=== PATIENT | male | born 1990 | race Caucasian/White ===

== ENCOUNTER 2019-01-19 07:38 | Day surgery (SDC) | payer MEDICAID, SELFPAY ==
[2019-01-19] VITALS (7 sets, daily range): BP systolic 109–134; BP diastolic 75–88; PULSE 74–88; RESP 11–18; TEMP 36.3–36.6; O2SAT 98–100
--- NOTE | 2019-01-19 06:33 | ROE_ITS ---
Date of service: 01/19/19 Time of Service: 10:33 Operative Note DATE OF PROCEDURE: 01/19/19 PRE-OP DIAGNOSIS: Biliary dyskinesia POST-OP DIAGNOSIS: same PROCEDURE: Laparoscopic Cholecystectomy SURGEON: Noemi Huff ASSISTING SURGEON: Danitza Avila MECHANICAL ENGINEERING OFFICER: Chata Reveles ANESTHESIA: GETA (ASA 2/ ) and regional ESTIMATED BLOOD LOSS: 25 PATHOLOGY: other (Gallbladder) COMPLICATIONS: None Patient was transported to: PACU Patient's condition: stable Indications: Mr. Dorman is a pleasant 28 year old seen in the office for Billiary Dyskinesia. Risks, benefits, complications were reviewed with the patient in the office. Complications include but are not limited to bleeding, infection, injury to stomach, small bowel and large bowel, injury to the p ancreas, injury to the common bile duct necessitating drainage and referral to tertiary center for repair, bile leak, adverse reactions to the medications, complications of intubation including a sore throat or injury to the uvula, RI, stroke and even . Questions were entertained and answered to her satisfaction and she wished to proceed. No guarantees were given or implied. Findings: Normal appearing Gallbladder. No stones noted Procedure Description: After informed consent was obtained the patient was taken to the PACU and anesthesia performed a erector spine block for postoperative comfort. Once the block was in place the patient was brought to the operating room, placed in a supine position and monitors were applied. SCDs were applied to her lower extremities and he was placed under general anesthesia and intubated without difficulty. His abdomen was then prepped and draped in a sterile fashion using ChloraPrep. At this point a timeout was done and the patient's name, date of , procedure type, allergies to medications, metal in her body, antibiotic and DVT prophylaxis, and fire risk was assessed. At this point half percent Marcaine was injected just above the umbilicus into the dermis and subcutaneous tissue. A 5 mm incision was made with an 11 blade. The skin next to the incision was grasped with penetrating towel clamps and while pulling up on the skin a 5 mm port was placed under direct visualization. It was difficult to get the port through the fascia so I made the incision a little bit bigger and grasped the fascia with kochers. The fascia was the cut with Scisors and the port was then placed easily into the abdomen. The abdomen was insuflated and then 3 more ports were placed. A 12 mm port was placed in the subxiphoid area and two 5 mm ports were placed in the right upper quadrant. The liver was inspected and was noted to be normal. The patient's bed was then turned to the left and the head was brought up. The gallbladder was grasped at the body and pushed towards the right shoulder, this allowed me to visualize the neck of the gallbladder. The duodenum was noted to be attached to the body of the Gallbladder. The band of scar tissue was dissected away from the Gallbladder and it was cut with laparoscopic scissors. The duodenum was then swept down and way from the operating field. The neck of the Gallbladder was grasped and pulled towards the right flank and down allowing me to visualize the lymph node. Using a [place] dissector with cautery the lymph node was gently dissected away. The cystic duct was identified it was normal in size. The duct was dissected 360 degrees using the [place] dissector in order for me to visualize its entrance into the gallbladder. Liver was noted behind it. There were no other structures right behind. Critical view was achieved. 3 clips were placed one proximal and 2 distal and the cystic duct was cut. The cystic artery was then identified and dissected 360 degrees. It was located just medial to the cystic duct. It was visualized going into the gallbladder. Once dissected 3 more clips were placed one proximal and 2 distal and the artery was cut. Using the hook dissector the gallbladder was then dissected away from the liver bed and placed into an Endo Catch bag and pulled through the 12 mm port site. The 12 mm port was placed back into the abdomen under direct visualization. The liver bed was inspected no bleeding was noted. The abdomen was then irrigated 800 cc of normal saline until the effluent was clear. Once all the fluid was suctioned out, the rest of the local anesthetic mixture was injected above the liver to help with postoperative right shoulder pain. The 12 mm and the 2 right upper quadrant ports were removed under direct visualization and no bleeding was noted from the fascia. The abdomen was deflated completely and lastly the umbilical port was removed. 10 cc of exparel was then injected into the fascia of the subxiphoid incision as well as the umbilical incision. The skin was cleaned and the incisions were closed with 4-0 Vicryl. The skin was dried and skin affix was applied over the closed incisions. Needle and sponge counts were correct at the end of the case. At this point the patient was woken up, extubated and taken back to recovery in stable condition. There were no immediate complications and the patient tolerated the procedure well.
--- NOTE | 2019-01-19 06:58 | W.PM.DSUDISC ---
Discharge Plan Disposition Patient Disposition: HOME Condition: Good Discharge Details Reason For Visit: Biliary Dyskinesia Attending Provider: Noemi Huff Primary Care Provider: Karen Nails Home Meds and New Rx's Prescriptions: New acetaminophen [Tylenol] 325 mg Tablet 650 mg PO Q6H PRN (Reason: fever or pain) Qty: 60 RF: 0 ibuprofen [IBU] 600 mg Tablet 600 mg PO Q6H PRN PRN (Reason: Pain) Qty: 30 RF: 0 oxycodone 5 mg Tablet 5 mg PO Q6H PRN (Reason: Pain) Qty: 14 RF: 0 Continued loratadine [Allergy Relief (loratadine)] 10 mg tablet 10 mg PO DAILY RF: 0 divalproex [Depakote] 500 mg tablet,delayed release (DR/EC) 1,500 mg PO DAILY RF: 0 olanzapine [Zyprexa] 15 mg tablet 15 mg PO DAILY RF: 0 bupropion HCl 150 mg tablet extended release 24 hr 150 mg PO QAM RF: 0 Discharge Instructions Instructions: Laparoscopic Cholecystectomy (DC) Additional Instructions: Activity at Home after surgery: 1. Make sure you walk outside at least 4 times per day 2. You should be able to climb a flight of stairs 3. No driving while in pain or taking pain medications 4. No strenuous activity or heavy lifting for 2 weeks (laparoscopic surgery) Diet, Nutrition, & wound healin. Avoid alcohol until after you are recovered from your surgery 2. Make sure to eat plenty of lean protein (meat, fish, eggs, cottage cheese, beans) 3. Eat a variety of fruits and vegetables. Eat plenty of high fiber foods to avoid constipation. 4. Drink plenty of liquids to stay hydrated and avoid constipation Pain Medications: 1. Alternate Tylenol 650 mg 2. Ibuprofen 600 mg every 3 hours 3. If a narcotic has been prescribed take as directed only for breakthrough pain For Constipation: 1. Take Milk of Magnesia or MiraLax as needed for constipation Other: 1. You may shower daily. Do not scrub the incisions 2. Do not soak the incisions for 1 week 3. You may alternate ice and heat as needed for pain and swelling Wound Care: 1. Keep the incisions clean and dry Please call our office if you develop: 1. Fevers >101.5 2. Nausea or Vomiting 3. Worsening pain 4. Redness and thick discharge from the wounds If after hours please call the Hospital at and ask to speak to the on-call surgeon Referrals: Noemi Huff MD [ [facility] STAFF PHYSICIAN] - 02/04/19 9:45 am Activity:: No lifting >20 lb x 2 weeks Diet:: low fat Discharge Orders Discharge Orders: Discharge Order (Routine); Ordered 01/19/19 Ordered By: Noemi Huff DS: Diagnosis Discharge Diagnosis (1) History of laparoscopic cholecystectomy: Status: Acute (2) Biliary dyskinesia: Status: Acute
--- NOTE | 2019-01-19 07:01 | PDOC.DSDIS_ITS ---
Discharge Plan Disposition Patient Disposition: HOME Condition: Good Discharge Details Reason For Visit: Biliary Dyskinesia Attending Provider: Noemi Huff Primary Care Provider: Karen Nails Home Meds and New Rx's Prescriptions: New acetaminophen [Tylenol] 325 mg Tablet 650 mg PO Q6H PRN (Reason: fever or pain) Qty: 60 RF: 0 ibuprofen [IBU] 600 mg Tablet 600 mg PO Q6H PRN PRN (Reason: Pain) Qty: 30 RF: 0 oxycodone 5 mg Tablet 5 mg PO Q6H PRN (Reason: Pain) Qty: 14 RF: 0 Continued loratadine [Allergy Relief (loratadine)] 10 mg tablet 10 mg PO DAILY RF: 0 divalproex [Depakote] 500 mg tablet,delayed release (DR/EC) 1,500 mg PO DAILY RF: 0 olanzapine [Zyprexa] 15 mg tablet 15 mg PO DAILY RF: 0 bupropion HCl 150 mg tablet extended release 24 hr 150 mg PO QAM RF: 0 Discharge Instructions Instructions: Laparoscopic Cholecystectomy (DC) Additional Instructions: Activity at Home after surgery: 1. Make sure you walk outside at least 4 times per day 2. You should be able to climb a flight of stairs 3. No driving while in pain or taking pain medications 4. No strenuous activity or heavy lifting for 2 weeks (laparoscopic surgery) Diet, Nutrition, & wound healin. Avoid alcohol until after you are recovered from your surgery 2. Make sure to eat plenty of lean protein (meat, fish, eggs, cottage cheese, beans) 3. Eat a variety of fruits and vegetables. Eat plenty of high fiber foods to avoid constipation. 4. Drink plenty of liquids to stay hydrated and avoid constipation Pain Medications: 1. Alternate Tylenol 650 mg 2. Ibuprofen 600 mg every 3 hours 3. If a narcotic has been prescribed take as directed only for break through pain For Constipation: 1. Take Milk of Magnesia or MiraLax as needed for constipation Other: 1. You may shower daily. Do not scrub the incisions 2. Do not soak the incisions for 1 week 3. You may alternate ice and heat as needed for pain and swelling Wound Care: 1. Keep the incisions clean and dry Please call our office if you develop: 1. Fevers >101.5 2. Nausea or Vomiting 3. Worsening pain 4. Redness and thick discharge from the wounds If after hours please call the Hospital at and ask to speak to the on-call surgeon Referrals: Noemi Huff MD [ [facility] STAFF PHYSICIAN] - 02/04/19 9:45 am Activity:: No lifting >20 lb x 2 weeks Diet:: low fat Discharge Orders Discharge Orders: Discharge Order (Routine); Ordered 01/19/19 Ordered By: Noemi Huff DS: Diagnosis Discharge Diagnosis (1) History of laparoscopic cholecystectomy: Status: Acute (2) Biliary dyskinesia: Status: Acute
[2019-01-19] MEDS: Lactated Ringers 1,000 ML 80 ML IV (08:20)
[2019-01-19] MEDS: Bupivacaine LIPOSOME/PF 133 MG/10 ML VIAL IJ ×2 (09:40→11:12)
[2019-01-19] MEDS: PIPERACILLIN/TAZO 3.375 GM in Normal Saline 50 ML IVPB (09:40)
[2019-01-19] MEDS: Bupivacaine 0.5% Pres-Free 30 ML VIAL (09:40)
--- NOTE | 2019-01-19 11:00 | GB_PTH ---
PATIENT: Robbin Dorman LOC: [facility] U#:[id number] AGE/SX: 28/M ROOM: RE01/19/[address]: Noemi Huff MD : 1990 BED: DIS: 01/19/2019 SPEC #: [id number] RECD: 01/19/19 12:15 STATUS: ZAHRA REQ #: [id number] FIDELINA: 01/19/19 11:[address]: Noemi Huff DEPT: Surgical Specimen RECD BY: Marguerite Dietrich ENTERED: 01/19/19 12:16 SP TYPE: GB OTHR DR: Karen Nails Tissues: 1 - GALLBLADDER Procedures: GROSS AND MICRO LEVEL 3 Comments: [id number]
[2019-01-19] MEDS: Lidocaine 1% Multi-Dose 50 ML VIAL (11:11)
[2019-01-19] MEDS: Ibuprofen 600 MG TAB PO (13:36)
== END 2019-01-19 14:08 | disposition home or self-care (01) ==
PROVIDERS: PCP Internal Medicine; Visit Provider Surgery
PROC: 0FT44ZZ Resection of Gallbladder, Percutaneous Endoscopic Approach (ICD-10-PCS; CPT 47562; principal; 2019-01-19 09:00)
DX: K81.1 Chronic cholecystitis (principal); K82.8 Other specified diseases of gallbladder
CPT/HCPCS: 47562; 76942; 88304; J1100; J2543; J3010

== ENCOUNTER 2021-05-17 15:07 | Emergency (ER) | payer MEDICAID, SELFPAY ==
[2021-05-17 15:15] VITALS: BP 133/84; PULSE 120; TEMP 37.1; O2SAT 97
--- NOTE | 2021-05-17 15:15 | DI.RAD_ITS ---
Exam(s) XR KNEE RT 3V AP,LAT,PHILIP EXAM: XR KNEE RT 3V AP,LAT,PHILIP CLINICAL HISTORY: pain, injury last night. TECHNIQUE: 2D digital imaging was performed of the right knee. Three views obtained. AP, lateral an d AP tunnel views were obtained. COMPARISON: No exams were available for comparison FINDINGS: BONES: No acute fracture is present. No bony destructive lesion is seen. JOINTS: The knee is normally aligned. No joint effusion is seen. SOFT TISSUE: Normal. IMPRESSION: Unremarkable radiographs of the right knee. DATA REPOSITORY: RADIATION DOSE DELIVERED:
--- NOTE | 2021-05-17 15:27 | ED.GENADUL_ITS ---
Discharge Plan Disposition Patient Disposition: HOME Condition: Stable Discharge Details Clinical Impression: Injury of knee, right Primary Care Provider: Karen Nails ED Provider: Mamadou Treadwell Home Meds and New Rx's Prescriptions: Continued loratadine [Allergy Relief (loratadine)] 10 mg tablet 10 mg PO DAILY RF: 0 divalproex [Depakote] 500 mg tablet,delayed release (DR/EC) 1,000 mg PO DAILY RF: 0 olanzapine [Zyprexa] 15 mg tablet 15 mg PO DAILY RF: 0 bupropion HCl 150 mg tablet extended release 24 hr 150 mg PO QAM RF: 0 acetaminophen [Tylenol] 325 mg Tablet 650 mg PO Q6H PRN (Reason: fever or pain) Qty: 60 RF: 0 ibuprofen [IBU] 600 mg Tablet 600 mg PO Q6H PRN PRN (Reason: Pain) Qty: 30 RF: 0 Discharge Instructions Instructions: Knee Pain (ED) Additional Instructions: Please use knee brace and crutches. You may bear light weight on injured leg as tolerated. Please take ibuprofen 600mg every 6-8 hours for the next few days. Please take tylenol 650mg every 6 hours for the next few days. Please follow-up with orthopedics if pain persists. Return to the ER for worsening or new concerning symptoms. Referrals: [facility] [Provider Group] Karen Nails [Primary Care Provider] - Medical Decision Making 1530 -- 30yo m here after fall down a few stairs last night with injury to right knee. Patient notes that he twisted knee during fall and may have impacter it as well. Pain internal and worse with weight bearing and ambulation. Pain seem more medial. Patient neurovascularly intact distally. Concern for knee sprain vs meniscal tear. Will xray to assess for fracture. 1635 -- xray interpreted by radiologist: negative. Suspect sprain vs meniscal injury. Patient provided hinged knee brace and crutches and advised light weight bearing as tolerated, f/u ortho if not improving with NSAIDS over the next few days. HPI General Mode of arrival: ambulatory . Date/Time Provider Initiated Documentation: 05/17/21 15:16 . Limitations to Documentation: no limitations . Information obtained by: patient and family . History of Present Illness 30 y ear old M presents to the emergency department with the chief complaint of knee pain, described as moderate, Quality is described as aching, and is localized to the right. Patient reports no radiation. Patient started experiencing this day(s) (1) and it has been constant. Rest improves symptom(s), Movement worsens symptoms and Other factors that worsen symptoms (ambulation) . Patient notes no other symptoms.. Patient did receive the following treatments prior to arrival, none Related Data Home Medications Medication Instructions Recorded Confirmed bupropion HCl 150 mg 24 hr tablet, 150 mg PO QAM 12/24/18 05/17/21 extended release divalproex 500 mg tablet,delayed 1,000 mg PO DAILY tab 12/24/18 05/17/21 release loratadine 10 mg tablet 10 mg PO DAILY 12/24/18 05/17/21 olanzapine 15 mg tablet 15 mg PO DAILY 12/24/18 05/17/21 acetaminophen [Tylenol] 650 mg PO Q6H PRN #60 tab 01/19/19 05/17/21 ibuprofen [IBU] 600 mg PO Q6H PRN PRN #30 tab 01/19/19 05/17/21 Previous Rx's Medication Instructions Recorded acetaminophen [Tylenol] 650 mg PO Q6H PRN #60 tab 01/19/19 ibuprofen [IBU] 600 mg PO Q6H PRN PRN #30 tab 01/19/19 Allergies Allergy/AdvReac Type Severity Reaction Status Date / Time aripiprazole [From Abilify] AdvReac Intermediate numbness Verified 05/17/21 15:21 in right lower leg General Stated Complaint: Orthopedic MERLIN: 4 Review of Systems ENT Ears, Nose, Mouth, and Throat: Denies neck pain Cardiovascular Cardiovascular: Denies chest pain and Denies dyspnea Respiratory Respiratory: Denies dyspnea Gastrointestinal Gastrointestinal: Denies abdominal pain Musculoskeletal Musculoskeletal: Reports as per HPI, Denies neck pain and Denies numbness Neurologic Neurologic: Denies numbness and Denies sensory deficit [facility] Medical History (Updated 05/17/21 @ 16:39 by Mamadou Treadwell MD) Allergic rhinitis Biliary dyskinesia Depression Manic bipolar I disorder Schizophrenia Surgical History H/O hand surgery R hand w/hardware History of laparoscopic cholecystectomy (~01/19/19) History of myringotomy with tubes History of tonsillectomy Tonsils and adnoids Family History Father Alcohol abuse Diabetes Mother Atrial fibrillation Social History Smoking/Tobacco Use Status: Current every day Tobacco Type: cigarettes Smokeless tobacco user: chewing tobacco Quit status: not considering quitting Smoking risk assessment performed?: Yes Alcohol Intake: current Alcohol Intake frequency: a few times a week Alcohol type: beer Details: 2-3 beers 3 times a week Drug use: Occasionally Substance use type: marijuana Details: Pt mom states vapes regularly, would drink every day if she gave him ride or available and marijuana only occasionally Household members: family Do you feel safe at home: Yes Do you feel safe in your relationship?: Yes Exam Const General: cooperative Orientation: alert and awake Cardio Rate: tachycardic Rhythm: regular rhythm Pulses: dorsalis pedis present on the right 2+ Neuro Sensory Exam: no sensory deficits noted (distal RLE) Extrem Right lower extremity: hip/thigh Details: no tenderness, knee Details: swelling and abnormal ROM Details: held in an abnormal fashion Details: in extension and pain with active ROM during Details: in flexion; no deformity and no unusual warmth and lower leg Details: no tenderness Psych Other: patient notes feels anxious Course Vital Signs Vital signs: Vital Signs Temperature 37.1 C 05/17/21 15:15 Pulse 120 H 05/17/21 15:15 Blood Pressure 133/84 05/17/21 15:15 Pulse Oximetry 97 05/17/21 15:15 Temperature 37.1 C 05/17/21 15:15 Temperature Source Temporal Artery Scan 05/17/21 15:15 Pulse 120 H 05/17/21 15:15 Respiratory Effort Non-Labored 05/17/21 15:18 Blood Pressure 133/84 05/17/21 15:15 Blood Pressure Position Sitting 05/17/21 15:15 Pulse Oximetry 97 05/17/21 15:15 Oxygen Delivery Method Room Air 05/17/21 15:15 Oxygen Flow Rate 0 05/17/21 15:15 Pain Level 7 05/17/21 15:20 PAWSS Have you Been Recently Intoxicated or Drunk Within the Last 30 days?: Yes Have you Ever Experienced Previous Episodes of Alcohol Withdrawal?: No Have you ever Experienced Withdrawal Seizures?: No Have you ever Experienced Delirium Tremens(DT)s?: No Have you ever undergone Alcohol Rehabilitation Treatment (i.e, inpt ot outpatient treatment programs)?: No Have you ever Experienced Blackouts?: Yes Have you ever Combined Alcohol with other Downers within the last 90 days?: No Have you ever Combined Alcohol with any other Substance of Abuse during the last 90 days?: Yes Positive Blood Alcohol level on Presentation? [PCS.BAL]: No Evidence of Increased Autonomic Activity (i.e. HR>120, tremor, sweating, agitation, nausea)?: No Result: 4
[2021-05-17] MEDS: Ibuprofen 600 MG TAB PO (15:33)
--- NOTE | 2021-05-17 16:23 | DI.VRAD_ITS ---
PROCEDURE INFORMATION: Exam: XR Right Knee Exam date and time: 05/17/2021 3:59 PM Age: 30 years old Clinical indication: Pain and injury or trauma; Fall; Blunt trauma; Knee; Right; Patient HX: Pain, injury last night TECHNIQUE: Imaging protocol: XR Right knee. Views: 3 views. COMPARISON: No relevant prior studies available. FINDINGS: Bones/joints: There is no evidence of acute fracture.There is no evidence of malalignment or dislocation. Soft tissues: Normal. IMPRESSION: There is no evidence of acute fracture.There is no evidence of malalignment or dislocation. Dictated and Authenticated by: Jl Temple MD. Ordering:TERRANCE Cedillo MD
== END 2021-05-17 17:15 | disposition home or self-care (01) ==
PROVIDERS: Emergency Provider Student in an Organized Health Care Education/Training Program; PCP Internal Medicine
DX: S89.81XA Other specified injuries of right lower leg, initial encounter (principal); W01.0XXA Fall on same level from slipping, tripping and stumbling without subsequent striking against object, initial encounter
CPT/HCPCS: 29505; 73562; 99283; 99282

== ENCOUNTER 2025-02-23 11:35 | Day surgery (SDC) | payer MEDICAID, SELFPAY ==
[2025-02-23 12:05] VITALS: BP 123/93; PULSE 104; RESP 18; TEMP 36.4; O2SAT 96
[2025-02-23] MEDS: Lactated Ringers 1,000 ML 80 ML IV (12:37)
[2025-02-23 12:39] VITALS: BMI 35.4
--- NOTE | 2025-02-23 12:39 | W.ANESPRE ---
General Info Date of Service Date Performed: 02/23/25 Height: 6 ft 1 in Weight: 121.7 kg Body Mass Index (BMI): 35.4 Surgical Procedure: Operation Date: 02/23/25 12:35 Proposed Procedure Side Surgeon p Gastroscopy with Dilation Sonia Mora MD Meds Allergies and Home Medications Allergies Allergy/AdvReac Type Severity Reaction Status Date / Time aripiprazole (From [facility]) AdvReac Intermediate numbness Verified 02/23/25 11:59 in right lower leg Home Medication ?Medication ?Instructions ?Recorded olanzapine 15 mg tablet (Zyprexa) 15 mg PO QPM 12/24/18 acetaminophen 325 mg tablet 650 mg (2 x 325 mg) PO Q6H PRN 01/19/19 (Tylenol) fever or pain #60 tabs ibuprofen 600 mg tablet (IBU) 600 mg PO Q6H PRN PRN Pain #30 tabs 01/19/19 nitroglycerin 0.4 mg sublingual 0.4 mg sublingual TID PRN 01/10/25 tablet buspirone 15 mg tablet 15 mg PO BID 02/15/25 divalproex 500 mg tablet,delayed 750 mg PO DAILY 02/15/25 release (Depakote) loratadine 10 mg tablet (Allergy 10 mg PO DAILY PRN 02/15/25 Relief (loratadine)) pantoprazole 40 mg tablet,delayed 40 mg PO DAILY #30 tabs 02/15/25 release ropinirole 3 mg tablet 3 mg PO QHS 02/15/25 Current Visit Medications: Current Medications Generic Name Dose Route Start Last Admin Trade Name Freq PRN Reason Stop Dose Admin Ringer's Solution 1,000 mls @ 80 mls/hr 02/23/25 06:00 02/23/25 12:37 IV 02/23/25 23:59 80 mls/hr INFUSION IDANIA Administration IV Miscellaneous Supplies 1 each 02/23/25 06:00 Iv Access IV 02/23/25 23:59 DIRECTED IDANIA Sodium Chloride 0 ml 02/23/25 06:00 Normal Saline Flush 10 Ml Syr IV 02/23/25 23:59 PRN PRN Sodium Chloride 0 ml 02/23/25 06:00 Normal Saline 10 Ml Vial IJ 02/23/25 23:59 DIRECTED PRN Sterile Water 0 ml 02/23/25 06:00 Water,Injection,Sterile 10 Ml Vial IJ 02/23/25 23:59 DIRECTED PRN PFSH Active Problems Active Problems: Problem Status Onset Code Hiatal hernia with GERD and esophagitis Acute K44.9, K21.00 Dysphagia Acute R13.10 Schatzki's ring Acute K22.2 GERD (gastroesophageal reflux disease) Chronic K21.9 Injury of knee, right Acute S89.91XA Manic bipolar I disorder Acute F31.10 Schizophrenia Chronic F20.9 Depression Chronic F32.9 Medical History Medical History Biliary dyskinesia Allergic rhinitis Periodic limb movement disorder Polyp of colon Follicular disorder, unspecified Pilonidal cyst without abscess Surgical History Surgical History H/O hand surgery R hand w/hardware History of laparoscopic cholecystectomy (~01/19/19) History of myringotomy with tubes History of tonsillectomy Tonsils and adnoids Tobacco Smoking/Tobacco Use Status: Current every day Tobacco Type: cigarettes Smoking cigarettes per day: 1 Smokeless tobacco user: chewing tobacco Alcohol Alcohol Intake: current Alcohol intake frequency: 0-2 drinks per day Alcohol type: beer Details: 2-3 beers 3 times a week Substance Use Substance use: Rarely Substance use type: marijuana Details: Pt mom states vapes regularly, would drink every day if she gave him ride or available and marijuana only occasionally Vital Signs and Lab Results Vital Signs Most Recent Vital Signs in EMR: Most Recent Vital Signs Temp Pulse Resp BP Pulse Ox 36.4 C L 104 H 18 123/93 H 96 02/23/25 12:05 02/23/25 12:05 02/23/25 12:05 02/23/25 12:05 02/23/25 12:05 Anesthesia Assessment and Plan Anesthesia History Personal History: No History of Anesthesia Complications Family History: No Family History of Anesthesia Complications Exercise Tolerance Exercise Tolerance: Metabolic Equivalents>4 Pertinent Negatives Pertinent Negatives: No Symptoms of GERD Cardiac & Pulmonary Exam Cardiac Exam: Normal S1/S2 Heart Sounds Pulmonary Exam: Clear Bilateral Breath Sounds Implantable Cardiac Device Does patient have a Pacemaker or an ICD?: No Airway Exam Known Difficult Airway: No Mallampati Class: 2 Mouth Opening: Normal (> 3cm) Thyromental Distance: Greater than 3 cm Neck Range of Motion: Full ROM Neck Circumference: Normal Teeth Condition: Normal Dentition ASA Classification ASA Score: ASA 2 Emergency Case?: No NPO Status NPO Status: NPO Clears >2 hours, Solids >8 hours Anesthesia Plan Resuscitation Status: Full Code Anesthesia Technique: General Anesthesia Airway Planned: Natural Airway Monitors Used: Standard Monitors
[2025-02-23 13:16] VITALS: BP 125/91; PULSE 89; RESP 16; TEMP 36.4; O2SAT 96
--- NOTE | 2025-02-23 13:16 | W.PM.DSUDISC ---
Date of service: 02/23/25 Discharge Plan Disposition Patient Disposition: Home Condition: Stable Discharge Details Attending Provider: Sonia Mora Primary Care Provider: Karen Nails Recommendations for Follow Up Recommended tests to be ordered by follow up provider: Follow up with Dr Mora in 4 weeks for symptom check to determine if additional dilation is needed. Continue on recently prescribed pantoprazole. Home Meds and New Rx's Prescriptions: No Action olanzapine [Zyprexa] 15 mg tablet 15 mg PO QPM divalproex [Depakote] 500 mg tablet,delayed release (DR/EC) 750 mg PO DAILY Patient Comments: pt reports unable to swallow pills so takes 125mg 3 times a day. loratadine [Allergy Relief (loratadine)] 10 mg tablet 10 mg PO DAILY PRN ropinirole 3 mg tablet 3 mg PO QHS Rx Instructions: administer 1-3 hours before bedtime buspirone 15 mg tablet 15 mg PO BID pantoprazole 40 mg tablet,delayed release (DR/EC) 40 mg PO DAILY Qty: 30 2RF nitroglycerin 0.4 mg tablet, sublingual 0.4 mg sublingual TID PRN Rx Instructions: one tab TID before meals acetaminophen [Tylenol] 325 mg Tablet 650 mg PO Q6H PRN (Reason: fever or pain) Qty: 60 0RF ibuprofen [IBU] 600 mg Tablet 600 mg PO Q6H PRN PRN (Reason: Pain) Qty: 30 0RF Discharge Instructions Instructions: Esophageal Dilation Additional Instructions: Your EGD today shows evidence of a silent reflux problem that has severely tightened your lower esophagus. You have a narrowing called a stricture, and I dilated it today to help stretch it out. It is quite narrow and so I would not be surprised if additional dilation will be needed to get you feeling like your swallow is normal. Continue on pantoprazole that I prescribed you from the office visit. That medicine is so important to help get this problem controlled and prevent you from needing ongoing dilations in the future. Take it every day faithfully. Call the office and make a follow up if you do not already have one made. I want to see you back to review symptoms on the treatment plan, and to decide where to go next. Stand Alone Forms: Anesthesia Discharge Inst., DSU Post EGD Instructions, Rebecca Madrigal (DSU) Activity:: Activity as Tolerated Diet:: As Tolerated Discharge Orders Discharge Orders: Discharge Order (Routine); Ordered 02/23/25 Ordered By: Sonia Mora
--- NOTE | 2025-02-23 13:20 | W.PM.ENDDOP ---
Date of service: 02/23/25 Time of Service: 13:20 Endoscopy Report DATE OF PROCEDURE: 02/23/25 PRE-OP DIAGNOSIS: Dysphagia, Schatzki ring POST-OP DIAGNOSIS: other (Dysphagia, esophagitis, esophageal stricture. ) PROCEDURE: Esophagoscopy with dilation SURGEON: Sonia Mora ANESTHESIA TYPE: MAC ESTIMATED BLOOD LOSS: 1 PATHOLOGY: none sent COMPLICATIONS: None DISPOSITION: same day INDICATIONS: Dysphagia and evidence of Schatzki ring on upper GI study. FINDINGS: Esophagitis with narrow stricture at 40cm from the incisors, precluding passing scope safely into stomach. Dilation performed with CRE balloon to 10mm. PROCEDURE DESCRIPTION: This is a 34-year-old male who presented to me with dysphagia. We planned an endoscopic dilation of what appeared to be a Schatzki ring on an upper GI x-ray. The procedure was discussed with him including the risks the benefits the alternatives and the expectations. Informed consent was obtained and he was taken to the endoscopic area. He was placed in left lateral decubitus position a bite block was placed. Timeout was performed. Anesthesia was induced. The endoscope was passed through the mouth into the distal esophagus. The GE junction was located at 30 at 40 cm from the incisors. There was narrow stricture of the gastroesophageal junction with narrowing that precluded safe passage of the endoscope into the stomach. There was evidence of chronic inflammation of the esophagus suggestive of chronic reflux. I balloon dilation was performed to 10 mm. Cracking of the esophageal mucosa occurred with a 10 mm dilation so additional dilation was not performed. The stricture was dilated to 10 mm and held for 60 seconds x 2. The GE junction remained too narrow to pass the endoscope into the stomach however transillumination allowed visualization into the stomach to confirm patency and safety for dilation. The stomach was desufflated and the endoscope withdrawn. The esophageal mucosa otherwise appeared normal without mass lesion varices inflammatory change ulceration or candidiasis. No complications. ASSESSMENT AND PLAN Distal esophageal stricture suspected to be secondary to reflux. Continue recently prescribed PPI. Follow up in office in 4 weeks for review of symptoms and to evaluate for the need for additional dilation.
--- NOTE | 2025-02-23 13:22 | W.ANESPOSTOP ---
Postoperative Evaluation Date, Time and Location Date Performed: 02/23/25 Time Performed: 13:22 Patient Location: Day Surgery Unit Vital Signs Most Recent Imported Vital Signs: Most Recent Vital Signs Temp Pulse Resp BP Pulse Ox 36.4 C L 104 H 18 123/93 H 96 02/23/25 12:05 02/23/25 12:05 02/23/25 12:05 02/23/25 12:05 02/23/25 12:05 Pain Score Most Recent Pain Score: Most Recent Pain Score Pain Level 0 02/23/25 12:05 Assessment Mental Status: Awake (Alert & Oriented to Patient Baseline) Airway and Respiratory Function: Patent airway with normal (patient baseline) respiratory exam Cardiovascular Function: Hemodynamically Stable Hydration Status: Adequately Hydrated Nausea & Vomiting: No Nausea or Vomiting Pain: Pt. Denies Any Pain Peripheral Nerve Block: Patient did not receive a nerve block
[2025-02-23 13:50] VITALS: BP 126/75; PULSE 76; RESP 16; TEMP 36.4; O2SAT 98
== END 2025-02-23 14:06 | disposition home or self-care (01) ==
LOC: SUR 11:37
PROVIDERS: PCP Internal Medicine; Visit Provider Surgery
PROC: 0D758ZZ Dilation of Esophagus, Via Natural or Artificial Opening Endoscopic (ICD-10-PCS; CPT 43245; principal; 2025-02-23 12:30)
DX: R13.10 Dysphagia, unspecified (principal); K22.2 Esophageal obstruction; K21.00 Gastro-esophageal reflux disease with esophagitis, without bleeding
CPT/HCPCS: 43245; J2003; J2704

== ENCOUNTER 2025-04-10 07:34 | Day surgery (SDC) | payer MEDICAID, SELFPAY ==
[2025-04-10 07:55] VITALS: BP 123/93; PULSE 89; RESP 20; TEMP 36.6; O2SAT 98
[2025-04-10] MEDS: Lactated Ringers 1,000 ML 80 ML IV (08:11)
--- NOTE | 2025-04-10 09:05 | W.ANESPRE ---
General Info Date of Service Date Performed: 04/10/25 Height: 6 ft 1.5 in Weight: 125.1 kg Body Mass Index (BMI): 35.9 Surgical Procedure: Operation Date: 04/10/25 09:35 Proposed Procedure Side Surgeon p Gastroscopy with Dilation Sonia Mora MD Meds Allergies and Home Medications Allergies Allergy/AdvReac Type Severity Reaction Status Date / Time aripiprazole (From [facility]) AdvReac Intermediate numbness Verified 04/10/25 07:52 in right lower leg Home Medication ?Medication ?Instructions ?Recorded olanzapine 15 mg tablet (Zyprexa) 15 mg PO QPM 12/24/18 acetaminophen 325 mg tablet 650 mg (2 x 325 mg) PO Q6H PRN 01/19/19 (Tylenol) fever or pain #60 tabs ibuprofen 600 mg tablet (IBU) 600 mg PO Q6H PRN PRN Pain #30 tabs 01/19/19 nitroglycerin 0.4 mg sublingual 0.4 mg sublingual TID PRN 01/10/25 tablet buspirone 15 mg tablet 15 mg PO BID 02/15/25 divalproex 500 mg tablet,delayed 750 mg PO DAILY 02/15/25 release (Depakote) loratadine 10 mg tablet (Allergy 10 mg PO DAILY PRN 02/15/25 Relief (loratadine)) pantoprazole 40 mg tablet,delayed 40 mg PO DAILY #30 tabs 02/15/25 release ropinirole 3 mg tablet 3 mg PO QHS 02/15/25 Current Visit Medications: Current Medications Generic Name Dose Route Start Last Admin Trade Name Jose Roberto PRN Reason Stop Dose Admin Ringer's Solution 1,000 mls @ 80 mls/hr 04/10/25 06:00 04/10/25 08:11 IV 05/07/25 23:59 80 mls/hr INFUSION IDANIA Administration IV Miscellaneous Supplies 1 each 04/10/25 06:00 Iv Access IV 05/07/25 23:59 DIRECTED IDANIA Sodium Chloride 0 ml 04/10/25 06:00 Normal Saline Flush 10 Ml Syr IV 05/07/25 23:59 PRN PRN Sodium Chloride 0 ml 04/10/25 06:00 Normal Saline 10 Ml Vial IJ 05/07/25 23:59 DIRECTED PRN Sterile Water 0 ml 04/10/25 06:00 Water,Injection,Sterile 10 Ml Vial IJ 05/07/25 23:59 DIRECTED PRN PFSH Active Problems Active Problems: Problem Status Onset Code Hiatal hernia with GERD and esophagitis Acute K44.9, K21.00 Dysphagia Acute R13.10 Schatzki's ring Acute K22.2 GERD (gastroesophageal reflux disease) Chronic K21.9 Injury of knee, right Acute S89.91XA Manic bipolar I disorder Acute F31.10 Schizophrenia Chronic F20.9 Depression Chronic F32.9 Medical History Medical History Biliary dyskinesia Allergic rhinitis Periodic limb movement disorder Polyp of colon Follicular disorder, unspecified Pilonidal cyst without abscess Surgical History Surgical History History of esophagogastroduodenoscopy (~02/2025) with dilatation H/O hand surgery R hand w/hardware History of laparoscopic cholecystectomy (~01/19/19) History of myringotomy with tubes History of tonsillectomy Tonsils and adnoids Tobacco Smoking/Tobacco Use Status: Current every day Tobacco Type: cigarettes Smoking cigarettes per day: 1 Smokeless tobacco user: chewing tobacco Alcohol Alcohol Intake: current Alcohol intake frequency: 3 or more drinks per day Alcohol type: beer Details: 2-3 beers 3 times a week Substance Use Substance use: Rarely Substance use type: marijuana Details: Pt mom states vapes regularly, would drink every day if she gave him ride or available and marijuana only occasionally Vital Signs and Lab Results Vital Signs Most Recent Vital Signs in EMR: Most Recent Vital Signs Temp Pulse Resp BP Pulse Ox 36.6 C 89 20 123/93 H 98 04/10/25 07:55 04/10/25 07:55 04/10/25 07:55 04/10/25 07:55 04/10/25 07:55 Anesthesia Assessment and Plan Anesthesia History Personal History: No History of Anesthesia Complications Family History: No Family History of Anesthesia Complications Exercise Tolerance Exercise Tolerance: Metabolic Equivalents>4 Pertinent Negatives Pertinent Negatives: No Major Cardiovascular Symptoms or Complaints and No Major Pulmonary Symptoms or Complaints Cardiac & Pulmonary Exam Cardiac Exam: Normal S1/S2 Heart Sounds Pulmonary Exam: Clear Bilateral Breath Sounds Implantable Cardiac Device Does patient have a Pacemaker or an ICD?: No Airway Exam Known Difficult Airway: No Mallampati Class: 2 Mouth Opening: Normal (> 3cm) Thyromental Distance: Greater than 3 cm Neck Range of Motion: Full ROM Neck Circumference: Normal Teeth Condition: Normal Dentition ASA Classification ASA Score: ASA 2 Emergency Case?: No NPO Status NPO Status: NPO Clears >2 hours, Solids >8 hours Anesthesia Plan Resuscitation Status: Full Code Anesthesia Technique: General Anesthesia Airway Planned: Natural Airway Monitors Used: Standard Monitors
[2025-04-10 09:06] VITALS: BMI 35.9
--- NOTE | 2025-04-10 09:29 | W.PM.HP.N ---
Date of service: 04/10/25 Time of Service: 09:29 Assessment and Plan Assessment and plan (1) Hiatal hernia with GERD and esophagitis: Status: Acute (2) Peptic stricture of esophagus: Status: Acute Assessment and plan: EGD with evaluation of stomach and H pylori biopsy today. Dilation of stricture planned. unable to intubate stomach through stricture at last procedure. anticipate with improvements in the last 4 weeks that we will be successful this time. procedure discussed, consent obtained. proceed to EGD. History of Present Illness History of Present Illness Chief Complaint: egd with dilation Narrative: 34yo M with peptic stricture of esophagus here for dilation. He has had improvement in dysphagia since starting PPI and having dilation last month. Getting more foods down and expanding the variety of textures he eats . PFSH All Active Problems (Updated 04/10/25 @ 09:31 by Sonia Mora MD) Peptic stricture of esophagus (Acute) Hiatal hernia with GERD and esophagitis (Acute) Dysphagia (Acute) Schatzki's ring (Acute) GERD (gastroesophageal reflux disease) (Chronic) Injury of knee, right (Acute) Manic bipolar I disorder (Acute) Schizophrenia (Chronic) Depression (Chronic) Medical History Biliary dyskinesia Allergic rhinitis Periodic limb movement disorder Polyp of colon Follicular disorder, unspecified Pilonidal cyst without abscess Surgical History History of esophagogastroduodenoscopy (~02/2025) with dilatation H/O hand surgery R hand w/hardware History of laparoscopic cholecystectomy (~01/19/19) History of myringotomy with tubes History of tonsillectomy Tonsils and adnoids Family History Father Alcohol abuse Diabetes Mother Atrial fibrillation Social History Smoking/Tobacco Use Status: Current every day Tobacco Type: cigarettes Smokeless tobacco user: chewing tobacco Quit status: not considering quitting Smoking risk assessment performed?: Yes Alcohol Intake: current Alcohol Intake frequency: 3 or more drinks per day Alcohol type: beer Details: 2-3 beers 3 times a week Drug use: Rarely Substance use type: marijuana Details: Pt mom states vapes regularly, would drink every day if she gave him ride or available and marijuana only occasionally Household members: family Housing: apartment Do you feel safe at home: Yes Do you feel safe in your relationship?: Yes Meds Allergies and Home Medications Allergies Allergy/AdvReac Type Severity Reaction Status Date / Time aripiprazole (From [facility]) AdvReac Intermediate numbness Verified 04/10/25 07:52 in right lower leg Home Medications ?Medication ?Instructions ?Recorded ?Confirmed ?Type olanzapine 15 mg tablet (Zyprexa) 15 mg PO QPM 12/24/18 04/10/25 History acetaminophen 325 mg tablet 650 mg (2 x 325 mg) PO Q6H PRN 01/19/19 04/05/25 Rx (Tylenol) fever or pain #60 tabs ibuprofen 600 mg tablet (IBU) 600 mg PO Q6H PRN PRN Pain #30 tabs 01/19/19 04/05/25 Rx nitroglycerin 0.4 mg sublingual 0.4 mg sublingual TID PRN 01/10/25 04/05/25 History tablet buspirone 15 mg tablet 15 mg PO BID 02/15/25 04/10/25 History divalproex 500 mg tablet,delayed 750 mg PO DAILY 02/15/25 04/10/25 History release (Depakote) loratadine 10 mg tablet (Allergy 10 mg PO DAILY PRN 02/15/25 04/10/25 History Relief (loratadine)) pantoprazole 40 mg tablet,delayed 40 mg PO DAILY #30 tabs 02/15/25 04/10/25 Rx release ropinirole 3 mg tablet 3 mg PO QHS 02/15/25 04/10/25 History Exam Narrative Exam Narrative: awake, NAD eomi, MMM midline trachea, neck is symmetric PULM: normal resp effort, equal chest rise with respiration, no wheezing audible CARDIAC: normal PMI, no jvd, regular rate, normal perfusion abdomen is nondistended. extremities are without deformity, normal movement of all four extremities speech is clear and coherent mood and affect are congruent, no focal neurological deficits skin without rash Results Last Vital Signs Temp 97.9 F 04/10/25 07:55 Pulse 89 04/10/25 07:55 Resp 20 04/10/25 07:55 BP 123/93 H 08/25/25 07:55 Pulse Ox 98 04/10/25 07:55 Time Spent Time spent with Patient: <40 minutes Time was spent: preparing to see the patient(eg.review tests), ordering medications,tests, procedures, referring, communicating with other health medicare sales executive, counseling the patient and care coordination
--- NOTE | 2025-04-10 09:50 | STOM_PTH ---
PATIENT: Robbin Dorman LOC: [facility] U#:[id number] AGE/SX: 34/M ROOM: RE04/10/[address]: Sonia Mora MD : 1990 BED: DIS: 04/10/2025 SPEC #: [id number] RECD: 04/10/25 12:35 STATUS: ZAHRA REQ #: [id number] FIDELINA: 04/10/25 09:[address]: Sonia Mora DEPT: Surgical Specimen RECD BY: Marguerite Dietrich ENTERED: 04/10/25 12:36 SP TYPE: STOMACH OTHR DR: Karen Nails Tissues: 1 - STOMACH BIOPSY Procedures: GROSS AND MICRO LEVEL 4 Comments: [id number]
--- NOTE | 2025-04-10 10:01 | W.PM.DSUDISC ---
Date of service: 04/10/25 Discharge Plan Disposition Patient Disposition: Home Condition: Stable Discharge Details Attending Provider: Sonia Mora Primary Care Provider: Karen Nails Recommendations for Follow Up Recommended tests to be ordered by follow up provider: None Home Meds and New Rx's Prescriptions: New pantoprazole 40 mg tablet,delayed release (DR/EC) 40 mg PO DAILY Qty: 90 3RF Continued olanzapine [Zyprexa] 15 mg tablet 15 mg PO QPM divalproex [Depakote] 500 mg tablet,delayed release (DR/EC) 750 mg PO DAILY Patient Comments: pt reports unable to swallow pills so takes 125mg 3 times a day. loratadine [Allergy Relief (loratadine)] 10 mg tablet 10 mg PO DAILY PRN ropinirole 3 mg tablet 3 mg PO QHS Rx Instructions: administer 1-3 hours before bedtime buspirone 15 mg tablet 15 mg PO BID pantoprazole 40 mg tablet,delayed release (DR/EC) 40 mg PO DAILY Qty: 30 2RF nitroglycerin 0.4 mg tablet, sublingual 0.4 mg sublingual TID PRN Rx Instructions: one tab TID before meals acetaminophen [Tylenol] 325 mg Tablet 650 mg PO Q6H PRN (Reason: fever or pain) Qty: 60 0RF ibuprofen [IBU] 600 mg Tablet 600 mg PO Q6H PRN PRN (Reason: Pain) Qty: 30 0RF Discharge Instructions Additional Instructions: Esophagus looks significantly improved. The inflammation is down and the esophagus is more stretchy to allow foods through. Camera was able to pass into stomach this time, and the stomach looks normal. A biopsy to rule out H pylori stomach infection was taken. Dilated you to a 12mm size today, 2mm more than last time! See me in office as scheduled to follow up. Stand Alone Forms: Anesthesia Discharge InstMayda, Rebecca Madrigal (DSU) Activity:: Activity as Tolerated Shower/Bathe:: 24 hours Diet:: As Tolerated DS: Diagnosis Discharge Diagnosis (1) Peptic stricture of esophagus: Status: Acute
[2025-04-10 10:04] VITALS: BP 116/78; PULSE 84; RESP 16; TEMP 36.2; O2SAT 96
--- NOTE | 2025-04-10 10:14 | W.ANESPOSTOP ---
Postoperative Evaluation Date, Time and Location Date Performed: 04/10/25 Time Performed: 10:05 Patient Location: Day Surgery Unit Vital Signs Most Recent Imported Vital Signs: Most Recent Vital Signs Temp Pulse Resp BP Pulse Ox 36.2 C L 84 16 116/78 96 04/10/25 10:04 04/10/25 10:04 04/10/25 10:04 04/10/25 10:04 04/10/25 10:04 Most Recent Vital Signs Temp Pulse Resp BP Pulse Ox 36.2 C L 84 16 116/78 96 04/10/25 10:04 04/10/25 10:04 04/10/25 10:04 04/10/25 10:04 04/10/25 10:04 Pain Score Most Recent Pain Score: Most Recent Pain Score Pain Level 0 04/10/25 10:04 Assessment Mental Status: Awake (Alert & Oriented to Patient Baseline) Airway and Respiratory Function: Patent airway with normal (patient baseline) respiratory exam Cardiovascular Function: Hemodynamically Stable Hydration Status: Adequately Hydrated Nausea & Vomiting: No Nausea or Vomiting Pain: Pt. Denies Any Pain Peripheral Nerve Block: Patient did not receive a nerve block
[2025-04-10 10:37] VITALS: BP 112/82; PULSE 65; RESP 16; TEMP 36.7; O2SAT 98
--- NOTE | 2025-04-10 12:49 | W.PM.ENDDOP ---
Date of service: 04/10/25 Time of Service: 12:50 Endoscopy Report PRE-OP DIAGNOSIS: esophageal stricture POST-OP DIAGNOSIS: same PROCEDURE: EGD with cold forceps biopsy and dilation SURGEON: Sonia Mora ANESTHESIA TYPE: General:No Airway ESTIMATED BLOOD LOSS: 2 PATHOLOGY: other (1. antrum biopsy) COMPLICATIONS: None DISPOSITION: same day INDICATIONS: peptic stricture of esophagus PROCEDURE DESCRIPTION: Lubricated endoscope was passed through a bite block into the second portion of the duodenum. The endoscope was withdrawn and the duodenum stomach and esophageal mucosa examined. The duodenum appeared normal. There is no inflammation or ulceration or erosion. The antrum appears normal. The fundus appears normal. The cardia appears normal and there is no evidence of hiatal hernia upon retroflexion. Cold forceps biopsies obtained from the antrum for microscopic evaluation for H. pylori. The distal esophagus shows evidence of chronic inflammation and stricture. There is improvement in the degree of inflammation present, and the GE junction does insufflate open more readily than before. The endoscope snugly passes into the stomach through the GE junction, was unable to do so four weeks ago. The Z-line is regular and there is no evidence of Ferguson's esophagus. Remainder of the esophagus appears normal Sequential balloon dilation performed from 10mm to 11mm to 12mm. Dilations held for 60 seconds. Visible improvement in the patency of the GE junction after dilation. Small amount of bleeding and mucosal cracking at 12mm. The upper digestive system was desufflated and the endoscope withdrawn. No complications. Assessment and plan: Esophageal peptic stricture. Improving on daily PPI therapy. Dilation performed for dysphagia symptom relief. Additional dilation can be done if symptoms warrant. See me in office as planned for symptom review. Continue daily PPI. Refill for 1 year, 90 day supply per fill sent to pharmacy. Due to severe complications of GERD, long-term PPI therapy is indicated.
== END 2025-04-10 10:44 | disposition home or self-care (01) ==
PROVIDERS: PCP Internal Medicine; Visit Provider Surgery
PROC: 0D758ZZ Dilation of Esophagus, Via Natural or Artificial Opening Endoscopic (ICD-10-PCS; CPT 43245; principal; 2025-04-10 09:30)
DX: K44.9 Diaphragmatic hernia without obstruction or gangrene (principal); K21.00 Gastro-esophageal reflux disease with esophagitis, without bleeding; K22.2 Esophageal obstruction; K31.9 Disease of stomach and duodenum, unspecified
CPT/HCPCS: 43245; 43239; 88305; J2003; J2704